=== PATIENT | male | born 1985 | race Caucasian/White ===

== ENCOUNTER 2017-06-08 16:15 | Emergency (ER) | payer MEDICAID ==
[~2017-06-08] VITALS: Ht 180.3 cm; Wt 93.0 kg
[2017-06-08 19:05] VITALS: BP 124/74
== END 2017-06-08 19:12 | disposition home or self-care (01) ==
LOC: ER 16:15
DX: R42 Dizziness and giddiness (principal); R51 Headache; R11.0 Nausea
CPT/HCPCS: 70450; 99284